=== PATIENT | female | born 1975 | race Caucasian/White ===

== ENCOUNTER 2024-04-18 01:58 | Observation (INO) ==
[2024-04-18] MEDS: Lactated Ringers 1000 ml BAG 1,000 ML IV ONE ×3 (02:25→05:38)
[2024-04-18] MEDS: Ondansetron 4 mg VIAL 2 MG/ML 2 ml VIAL IV ONE (02:28)
[2024-04-18 02:32] LABS: Venous Bicarbonate HCO3 19.9 mmol/L (24-28)
[2024-04-18 03:06] LABS: Albumin/Globulin Ratio 1.4 (1-3); C Reactive Protein 8.95 mg/L (<8.01); Calcium 9.2 mg/dL (8.6-10.3); Creatinine, Serum 0.85 mg/dL (0.51-0.95); Globulin 2.8 g/dL (2-4); Magnesium 1.9 mg/dL (1.9-2.7); Phosphorus 3.9 mg/dL (2.5-5.0); Potassium 3.8 mmol/L (3.5-5.0); Total Bilirubin 0.6 mg/dL (0.2-1.0); Total Protein 6.8 g/dL (6.4-8.9)
[2024-04-18 03:17] LABS: ABS Basophils 0.1 10^3/uL (0.0-0.1); ABS Lymphocytes 1.8 10^3/uL (1.0-4.8); ABS Monocytes 0.9 10^3/uL (0.0-0.9); ABS Neutrophils 8.7 10^3/uL (1.5-7.6); ABS Nucleated RBC 0.01 10^3/ul; Eosinophil % 0.3 %; Hematocrit 38.8 % (35-45); Hemoglobin 13.1 g/dL (11.5-14.3); Lymphocyte % 15.4 %; Mean Corpuscular Hemoglobin 30.5 pg (27-33); Mean Corpuscular Hgb Conc 33.8 g/dL (31-36); Mean Corpuscular Volume 90.5 fL (80-97); Mean Platelet Volume 9.4 fL (7.5-11.2); Nucleated Red Blood Cells % 0.1 %/100WBC (0.0-0.8); Platelet Count 345 10^3/uL (150-450); Red Blood Count 4.29 10^6/uL (3.63-4.92); Red Cell Distribution Width 12.7 % (12-17); White Blood Count 11.4 10^3/uL (3.8-11.8)
[2024-04-18] MEDS ORDERED: Dextrose 50% Syringe 50 ml 25 GM/50 ML SYRINGE IV PUSH PRN (03:29)
[2024-04-18 03:48] LABS: High Sensitivity Troponin 1 Hr 9 pg/mL (<15)
[2024-04-18 04:03] LABS: Osmolality Serum 314 mOsm/kg (275-295)
[2024-04-18] MEDS: Insulin Infusion 100unit/100mL 100 UNIT/100 ML BAG IV SCH (04:08)
[2024-04-18 04:18] LABS: Glucose Confirmatory 444 mg/dL (70-100)
[2024-04-18] MEDS: Droperidol 5 MG/2 ML 2 ML VIAL IV ONE (04:31)
[2024-04-18 06:02] LABS: Urine Appearance Clear; Urine Bilirubin Negative (Negative); Urine Blood Trace (Negative); Urine Color Light-Yellow; Urine Glucose 4+ (>=1000 mg/dL) (Negative); Urine Ketones 4+ (Negative); Urine Nitrite Negative (Negative); Urine Protein Negative (Negative); Urine Specific Gravity 1.032 (1.002-1.030); Urine Urobilinogen Negative (Negative)
[2024-04-18 06:23] LABS: Calcium 8.6 mg/dL (8.6-10.3); Creatinine, Serum 0.69 mg/dL (0.51-0.95); Potassium 3.2 mmol/L (3.5-5.0); eGFR CKD-EPI 107.7 (>60)
[2024-04-18] MEDS: Metoclopramide 5 MG/ML VIAL (10 mg) IV SLOW PU ONE (06:26)
[2024-04-18] MEDS: Lactated Ringers 1000 ml BAG 1,000 ML IV SCH (06:41)
[2024-04-18] MEDS ORDERED: Senna TAB 8.6 mg TAB PO PRN (07:27)
[2024-04-18] MEDS ORDERED: Polyethylene Glycol 3350 17 GM PACKET PO PRN (07:27)
[2024-04-18] MEDS: Insulin GLARGINE 100 un/ml 10 ml VIAL SUBCUT ONE (08:14)
[2024-04-18] MEDS: Potassium Chlor 20 meq TAB.ER PO ONE ×2 (08:15→10:44)
[2024-04-18] MEDS: KCL 20 MEQ/100 ML IVPREMIX 20 MEQ/100 ML BAG IV SCH (08:16)
[2024-04-18 10:46] VITALS: BP 114/67
== END 2024-04-18 12:00 | disposition home or self-care (01) ==
LOC: ED 01:58 → EDHOLD 01:58
PROVIDERS: ADMIT Internal Medicine; ATTEND Internal Medicine

== ENCOUNTER 2024-04-23 18:17 | Inpatient (IN) ==
[2024-04-23] MEDS: Lactated Ringers 1000 ml BAG IV.FLUID IV ONE ×2 (18:39→20:58)
[2024-04-23 18:57] LABS: INR 0.98 (0.85-1.14)
[2024-04-23 19:01] LABS: ABS Eosinophils 0.1 10^3/uL (0.0-0.5); ABS Lymphocytes 1.1 10^3/uL (1.0-4.8); ABS Monocytes 0.5 10^3/uL (0.0-0.9); ABS Neutrophils 2.1 10^3/uL (1.5-7.6); Hematocrit 40.6 % (35-45); Hemoglobin 13.9 g/dL (11.5-14.3); Lymphocyte % 29.2 %; Mean Corpuscular Hemoglobin 31.1 pg (27-33); Mean Corpuscular Hgb Conc 34.1 g/dL (31-36); Mean Corpuscular Volume 91.2 fL (80-97); Mean Platelet Volume 8.6 fL (7.5-11.2); Nucleated Red Blood Cells % 0.1 %/100WBC (0.0-0.8); Platelet Count 295 10^3/uL (150-450); Red Blood Count 4.46 10^6/uL (3.63-4.92); Red Cell Distribution Width 13.1 % (12-17); White Blood Count 3.9 10^3/uL (3.8-11.8)
[2024-04-23 19:13] LABS: High Sens Troponin Baseline < 3 pg/mL (<15)
[2024-04-23 19:15] LABS: ALT 14 U/L (7-52); AST 16 U/L (13-39); Albumin 3.7 g/dL (3.2-5.2); Albumin/Globulin Ratio 1.1 (1-3); Alkaline Phosphatase 76 U/L (35-149); Anion Gap 18 mmol/L (2-16); Blood Urea Nitrogen 18 mg/dL (6-24); CO2 Carbon Dioxide 14 mmol/L (22-32); Calcium 8.9 mg/dL (8.6-10.3); Chloride 99 mmol/L (101-111); Creatinine, Serum 0.76 mg/dL (0.51-0.95); Globulin 3.3 g/dL (2-4); Glucose 373 mg/dL (70-100); HCG Pregnancy 2.85 mIU/mL; Potassium 3.8 mmol/L (3.5-5.0); Sodium 131 mmol/L (135-145); Total Bilirubin 0.4 mg/dL (0.2-1.0); eGFR CKD-EPI 97.2 (>60)
[2024-04-23] MEDS ORDERED: Dextrose 50% Syringe 50 ml 25 GM/50 ML SYRINGE IV PUSH PRN (20:07)
[2024-04-23 20:25] LABS: Venous Bicarbonate HCO3 16.6 mmol/L (24-28)
[2024-04-23 20:52] LABS: High Sensitivity Troponin 1 Hr 3 pg/mL (<15)
[2024-04-23] MEDS: NORMOSOL-R pH 7.4 1000 mL BAG 1,000 ML IV ONE (20:54)
[2024-04-23 21:15] LABS: Urine Appearance Clear; Urine Bacteria 1+ /HPF (Absent); Urine Bilirubin Negative (Negative); Urine Blood Negative (Negative); Urine Color Light-Yellow; Urine Glucose 4+ (>=1000 mg/dL) (Negative); Urine Ketones 4+ (Negative); Urine Nitrite Negative (Negative); Urine Protein Trace (Negative); Urine Red Blood Cell 1+(3-5/hpf) /HPF (0-Trace); Urine Squamous Epithelial Cell Present /HPF (Absent); Urine Urobilinogen Negative (Negative); Urine White Blood Cell Trace(0-5/hpf) /HPF (0-Trace)
[2024-04-23] MEDS: NORMOSOL-R pH 7.4 1000 mL BAG 1,000 ML IV SCH (21:58)
[2024-04-23] MEDS: Insulin Infusion 100unit/100mL 100 UNIT/100 ML BAG IV SCH (22:00)
[2024-04-23 23:09] LABS: Albumin 3.2 g/dL (3.2-5.2); Albumin/Globulin Ratio 1.3 (1-3); Calcium 8.1 mg/dL (8.6-10.3); Creatinine, Serum 0.67 mg/dL (0.51-0.95); Globulin 2.5 g/dL (2-4); Potassium 3.3 mmol/L (3.5-5.0); Total Bilirubin 0.3 mg/dL (0.2-1.0); Total Protein 5.7 g/dL (6.4-8.9); eGFR CKD-EPI 108.4 (>60)
[2024-04-23] MEDS: D5LR 1000 ml BAG 1,000 ML IV SCH (23:24)
[2024-04-23 23:27] LABS: Magnesium 1.7 mg/dL (1.9-2.7)
[2024-04-24] MEDS: D5LR 20 MEQ KCL 1000 ml BAG 1,000 ML IV SCH (00:51)
[2024-04-24] MEDS: Enoxaparin 40 MG/0.4 ML SYR SUBCUT SCH (00:52)
[2024-04-24] MEDS: cefTRIAXone 1 gm/50 mL D5W 1 GM/50 ML BAG IV ONE (01:04)
[2024-04-24] MEDS: Potassium Chloride LIQUID 20 MEQ/15 ML LIQUID PO ONE ×3 (01:06→04:55)
[2024-04-24] MEDS: Insulin Infusion 100unit/100mL 100 UNIT/100 ML BAG IV SCH ×2 (01:11→05:10)
[2024-04-24 02:38] LABS: Creatinine, Serum 0.63 mg/dL (0.51-0.95); Potassium 3.3 mmol/L (3.5-5.0)
[2024-04-24] MEDS: Ondansetron 4 mg VIAL 2 MG/ML 2 ml VIAL IV PRN (03:35)
[2024-04-24 05:09] LABS: ABS Eosinophils 0.1 10^3/uL (0.0-0.5); ABS Lymphocytes 1.5 10^3/uL (1.0-4.8); ABS Monocytes 0.4 10^3/uL (0.0-0.9); ABS Neutrophils 1.1 10^3/uL (1.5-7.6); Eosinophil % 3.6 %; Hematocrit 33.6 % (35-45); Hemoglobin 11.6 g/dL (11.5-14.3); Lymphocyte % 47.1 %; Mean Corpuscular Hemoglobin 30.9 pg (27-33); Mean Corpuscular Hgb Conc 34.6 g/dL (31-36); Mean Corpuscular Volume 89.4 fL (80-97); Mean Platelet Volume 8.2 fL (7.5-11.2); Nucleated Red Blood Cells % 0.1 %/100WBC (0.0-0.8); Platelet Count 251 10^3/uL (150-450); Red Blood Count 3.76 10^6/uL (3.63-4.92); Red Cell Distribution Width 12.9 % (12-17); White Blood Count 3.1 10^3/uL (3.8-11.8)
[2024-04-24 05:48] LABS: Calcium 7.9 mg/dL (8.6-10.3); Creatinine, Serum 0.5 mg/dL (0.51-0.95); Potassium 3.9 mmol/L (3.5-5.0); eGFR CKD-EPI 116.3 (>60)
[2024-04-24] MEDS ORDERED: Dextrose 50% Syringe 50 ml 25 GM/50 ML SYRINGE IV PUSH PRN (08:00)
[2024-04-24] MEDS: Lactated Ringers 1000 ml BAG 1,000 ML IV SCH (08:44)
[2024-04-24] MEDS: Insulin GLARGINE 100 un/ml 10 ml VIAL SUBCUT ONE (10:41)
[2024-04-24 16:34] LABS: Calcium 8.3 mg/dL (8.6-10.3); Creatinine, Serum 0.64 mg/dL (0.51-0.95); Potassium 3.7 mmol/L (3.5-5.0); eGFR CKD-EPI 109.6 (>60)
[2024-04-25 05:30] VITALS: BP 114/77
[2024-04-25 06:31] LABS: Hematocrit 37.8 % (35-45); Hemoglobin 12.8 g/dL (11.5-14.3); Mean Corpuscular Hemoglobin 30.5 pg (27-33); Mean Corpuscular Hgb Conc 33.9 g/dL (31-36); Mean Corpuscular Volume 89.9 fL (80-97); Mean Platelet Volume 8.1 fL (7.5-11.2); Platelet Count 284 10^3/uL (150-450); Red Blood Count 4.21 10^6/uL (3.63-4.92); Red Cell Distribution Width 12.9 % (12-17); White Blood Count 3.3 10^3/uL (3.8-11.8)
[2024-04-25 06:59] LABS: Calcium 8.8 mg/dL (8.6-10.3); Creatinine, Serum 0.55 mg/dL (0.51-0.95); Potassium 3.9 mmol/L (3.5-5.0); eGFR CKD-EPI 113.7 (>60)
[2024-04-25 08:21] LABS: ABS Eosinophils 0.1 10^3/uL (0.0-0.5); ABS Lymphocytes 1.7 10^3/uL (1.0-4.8); ABS Monocytes 0.4 10^3/uL (0.0-0.9); Eosinophil % 3.3 %; Lymphocyte % 53.6 %; Nucleated Red Blood Cells % 0.1 %/100WBC (0.0-0.8)
[2024-04-25] MEDS ORDERED: Insulin GLARGINE 100 un/ml 10 ml VIAL SUBCUT SCH (09:00)
[2024-05-01 13:37] LABS: Zinc Transporter 8 (ZnT8) Ab <15.0 U/mL (<15.0)
== END 2024-04-25 10:00 | disposition left against medical advice (07) | DRG 420 ==
LOC: ED 18:17 → EDHOLD 23:18 → ICU 23:54 → MED 04-24 14:03
PROVIDERS: ADMIT Internal Medicine; ATTEND Student in an Organized Health Care Education/Training Program

== ENCOUNTER 2024-06-28 16:35 | Inpatient (IN) ==
[2024-06-28 17:25] LABS: ABS Lymphocytes 1.2 10^3/uL (1.0-4.8); ABS Monocytes 0.4 10^3/uL (0.0-0.9); Eosinophil % 0.7 %; Hematocrit 45.2 % (35-45); Hemoglobin 14.7 g/dL (11.5-14.3); Lymphocyte % 18.2 %; Mean Corpuscular Hemoglobin 30.3 pg (27-33); Mean Corpuscular Hgb Conc 32.4 g/dL (31-36); Mean Corpuscular Volume 93.5 fL (80-97); Mean Platelet Volume 9.4 fL (7.5-11.2); Nucleated Red Blood Cells % 0.1 %/100WBC (0.0-0.8); Platelet Count 311 10^3/uL (150-450); Red Blood Count 4.83 10^6/uL (3.63-4.92); Red Cell Distribution Width 12.6 % (12-17); White Blood Count 6.7 10^3/uL (3.8-11.8)
[2024-06-28] MEDS: Lactated Ringers 1000 ml BAG 1,000 ML IV ONE (17:49)
[2024-06-28 18:00] LABS: Albumin 4.4 g/dL (3.2-5.2); Albumin/Globulin Ratio 1.2 (1-3); C Reactive Protein 10.78 mg/L (<8.01); Calcium 10.8 mg/dL (8.6-10.3); Creatinine, Serum 0.91 mg/dL (0.51-0.95); Globulin 3.7 g/dL (2-4); Magnesium 2.2 mg/dL (1.9-2.7); Phosphorus 3.5 mg/dL (2.5-5.0); Potassium 4.4 mmol/L (3.5-5.0); Total Bilirubin 0.8 mg/dL (0.2-1.0); Total Protein 8.1 g/dL (6.4-8.9); eGFR CKD-EPI 77.8 (>60)
[2024-06-28] MEDS ORDERED: Dextrose 50% Syringe 50 ml 25 GM/50 ML SYRINGE IV PUSH PRN (18:04)
[2024-06-28] MEDS: Insulin Infusion 100unit/100mL 100 UNIT/100 ML BAG IV SCH (18:25)
[2024-06-28] MEDS: Ondansetron 4 mg VIAL 2 MG/ML 2 ml VIAL IV ONE (18:32)
[2024-06-28 19:16] LABS: Urine Appearance Clear; Urine Bilirubin Negative (Negative); Urine Blood Negative (Negative); Urine Color Colorless; Urine Glucose 4+ (>=1000 mg/dL) (Negative); Urine Ketones 1+ (Negative); Urine Nitrite Negative (Negative); Urine Protein Negative (Negative); Urine Urobilinogen Negative (Negative); Urine pH 6.5 (5.0-8.0)
[2024-06-28] MEDS: Potassium Chlor 20 meq TAB.ER PO ONE (19:43)
[2024-06-28] MEDS: NORMOSOL-R pH 7.4 1000 mL BAG 1,000 ML IV SCH ×2 (20:07→21:57)
[2024-06-28 20:28] LABS: Osmolality Serum 350 mOsm/kg (275-295)
[2024-06-28 22:14] LABS: Venous Bicarbonate HCO3 26.6 mmol/L (24-28)
[2024-06-28 22:35] LABS: Osmolality Serum 312 mOsm/kg (275-295)
[2024-06-28 22:37] LABS: Calcium 8.6 mg/dL (8.6-10.3); Creatinine, Serum 0.62 mg/dL (0.51-0.95); Phosphorus 2.2 mg/dL (2.5-5.0); Potassium 3.5 mmol/L (3.5-5.0); eGFR CKD-EPI 109.8 (>60)
[2024-06-28] MEDS ORDERED: Ondansetron 4 mg VIAL 2 MG/ML 2 ml VIAL IV PRN (23:39)
[2024-06-29] MEDS: Enoxaparin 40 MG/0.4 ML SYR SUBCUT SCH (00:05)
[2024-06-29] MEDS: KCL 20 MEQ/100 ML IVPREMIX 20 MEQ/100 ML BAG IV SCH (00:05)
[2024-06-29 00:43] LABS: Venous Bicarbonate HCO3 31.5 mmol/L (24-28)
[2024-06-29 00:59] LABS: Calcium 8.6 mg/dL (8.6-10.3); Creatinine, Serum 0.73 mg/dL (0.51-0.95); Magnesium 1.9 mg/dL (1.9-2.7); Phosphorus 2.5 mg/dL (2.5-5.0); Potassium 3.7 mmol/L (3.5-5.0); eGFR CKD-EPI 101.4 (>60)
[2024-06-29] MEDS: D5LR 20 MEQ KCL 1000 ml BAG 1,000 ML IV SCH (01:50)
[2024-06-29] MEDS: Insulin GLARGINE 100 un/ml 10 ml VIAL SUBCUT ONE (02:02)
[2024-06-29] MEDS: Insulin GLARGINE 100 un/ml 10 ml VIAL SUBCUT SCH ×2 (02:02→11:42)
[2024-06-29] MEDS: Insulin GLARGINE 100 un/ml 10 ml VIAL ONE (02:31)
[2024-06-29 02:34] LABS: Osmolality Serum 303 mOsm/kg (275-295)
[2024-06-29 05:43] LABS: Venous Bicarbonate HCO3 28.7 mmol/L (24-28)
[2024-06-29 05:55] LABS: Calcium 8.1 mg/dL (8.6-10.3); Creatinine, Serum 0.62 mg/dL (0.51-0.95); Magnesium 1.9 mg/dL (1.9-2.7); Phosphorus 3.2 mg/dL (2.5-5.0); Potassium 3.8 mmol/L (3.5-5.0); eGFR CKD-EPI 109.8 (>60)
[2024-06-29 08:14] LABS: Osmolality Serum 294 mOsm/kg (275-295)
[2024-06-29] MEDS: Potassium Chlor 20 meq TAB.ER PO ONE (10:08)
[2024-06-29] MEDS: Magnesium Sulfate IV 1GM/100ML 1 GM/100 ML BAG IV ONE (10:08)
[2024-06-29 10:50] LABS: Venous Bicarbonate HCO3 24.2 mmol/L (24-28)
[2024-06-29 11:25] LABS: Osmolality Serum 308 mOsm/kg (275-295)
[2024-06-29 11:29] LABS: Calcium 8.6 mg/dL (8.6-10.3); Creatinine, Serum 0.69 mg/dL (0.51-0.95); Magnesium 2.2 mg/dL (1.9-2.7); Phosphorus 3.4 mg/dL (2.5-5.0); Potassium 4.4 mmol/L (3.5-5.0)
[2024-06-29] MEDS ORDERED: BENZOCAINE/MENTHOL (ORAJEL)20% 1 APPLIC TOP.GEL TOPICAL PRN (12:51)
[2024-06-29 21:04] LABS: Glucose Confirmatory 407 mg/dL (70-100)
[2024-06-30 06:05] LABS: ABS Basophils 0.1 10^3/uL (0.0-0.1); ABS Eosinophils 0.2 10^3/uL (0.0-0.5); ABS Lymphocytes 3.2 10^3/uL (1.0-4.8); ABS Monocytes 0.3 10^3/uL (0.0-0.9); ABS Neutrophils 2.7 10^3/uL (1.5-7.6); Eosinophil % 3.2 %; Hematocrit 36.2 % (35-45); Hemoglobin 12.3 g/dL (11.5-14.3); Lymphocyte % 49.7 %; Mean Corpuscular Hemoglobin 30.7 pg (27-33); Mean Corpuscular Volume 90.3 fL (80-97); Mean Platelet Volume 9.2 fL (7.5-11.2); Nucleated Red Blood Cells % 0.1 %/100WBC (0.0-0.8); Platelet Count 226 10^3/uL (150-450); Red Blood Count 4.01 10^6/uL (3.63-4.92); Red Cell Distribution Width 12.6 % (12-17); White Blood Count 6.4 10^3/uL (3.8-11.8)
[2024-06-30 06:23] LABS: Calcium 8.4 mg/dL (8.6-10.3); Creatinine, Serum 0.72 mg/dL (0.51-0.95); Magnesium 1.8 mg/dL (1.9-2.7); Phosphorus 3.8 mg/dL (2.5-5.0); Potassium 4.2 mmol/L (3.5-5.0); eGFR CKD-EPI 103.1 (>60)
[2024-06-30] MEDS: Insulin GLARGINE 100 un/ml 10 ml VIAL SUBCUT ONE (08:34)
[2024-06-30] MEDS: Insulin GLARGINE 100 un/ml 10 ml VIAL SUBCUT SCH (21:55)
[2024-07-01] MEDS: Insulin GLARGINE 100 un/ml 10 ml VIAL SUBCUT SCH (08:19)
[2024-07-02 10:01] VITALS: BP 100/70
== END 2024-07-02 14:10 | disposition home or self-care (01) | DRG 420 ==
LOC: ED 16:35 → EDHOLD 19:30 → SUATTDRO 19:30 → ICU 22:52 → MEDTELE 23:30
PROVIDERS: ADMIT Internal Medicine; ATTEND Internal Medicine